=== PATIENT | male | born 1995 | race Caucasian/White ===

== ENCOUNTER 2019-04-01 17:31 | Emergency (ER) | payer BC ==
[~2019-04-01] VITALS: Ht 188 cm; Wt 90.7 kg
[~2019-04-01 17:31] MED LIST: OMEPRAZOLE20 MG
[2019-04-01] MEDS ORDERED: ZYRTEC10 M3 (17:45)
== END 2019-04-01 18:40 | disposition home or self-care (01) ==
LOC: ER 17:31
DX: S81.852A Open bite, left lower leg, initial encounter (principal); W54.0XXA Bitten by dog, initial encounter; Y93.01 Activity, walking, marching and hiking; Y92.480 Sidewalk as the place of occurrence of the external cause; Y99.8 Other external cause status

== ENCOUNTER → 2023-06-27 | Emergency (ER) | payer OTHER ==
[~2023-06-27] VITALS: Ht 182.9 cm; Wt 93.4 kg
[~2023-06-27] MED LIST changes: +BUSPIRONE HCL10 MG PO; +ZYRTEC10 M3
[2023-06-27 10:00] LABS: HEMATOCRIT 33.9 % (39.0-48.0); HEMOGLOBIN 12.2 g/dL (13-16.00); MEAN CELL VOLUME 84.8 fL (80.0-100.00); MEAN CORPUSCULAR HEMOGLOBIN 30.4 pg (27.00-32.0); MEAN CORPUSCULAR HGB CONC 35.8 g/dl (32.0-36.0); PLATELET COUNT 267 K/uL (150-450); RED CELL DISTRIBUTION WIDTH 13.2 % (11.5-14.5)
[2023-06-27 10:37] LABS: URINE APPEARANCE Cloudy; URINE BILIRRUBIN Small (NEGATIVE); URINE BLOOD Small; URINE COLOR Dark Yellow; URINE GLUCOSE Negative (NEGATIVE); URINE LEUKOCYTE Trace; URINE NITRATE Negative
[2023-06-27 10:42] LABS: URINE BACTERIA 122.2 uL (0.0-1933); URINE EPITHELIAL CELLS 88.7 uL (0.0-38.8); URINE RBC 43.8 uL (0.0-20.8); URINE WBC 18.7 uL (0.0-23.2)
[2023-06-27 10:53] LABS: BILIRUBIN TOTAL 1.23 mg/dL (0.3-1.2); C-REACTIVE PROTEIN 36.6 MG/DL (0.00-0.29); CALCIUM 8.3 mg/dL (8.5-10.1); CREATININE SERUM 0.97 mg/dL (0.70-1.30); GFR 92.16; GLOBULINA 4.2 G/DL (2.4-3.5); POTASSIUM 3.24 mEq/L (3.5-5.1); TOTAL PROTEIN 7.2 gm/dL (6.4-8.2)
[2023-06-27 11:16] LABS: URINE PROTEIN 100 (NEGATIVE)
== END | disposition home or self-care (01) ==
LOC: ER 07:27
PROVIDERS: General Practice
DX: B34.9 Viral infection, unspecified (principal); B27.90 Infectious mononucleosis, unspecified without complication; R16.2 Hepatomegaly with splenomegaly, not elsewhere classified; Z20.822 Contact with and (suspected) exposure to COVID-19

== ENCOUNTER 2023-06-29 11:11 | Inpatient (IN) | payer OTHER ==
[~2023-06-29] VITALS: Ht 175.3 cm; Wt 72.6 kg
[2023-06-29 13:39] LABS: HEMATOCRIT 32.7 % (39.0-48.0); HEMOGLOBIN 11.2 g/dL (13-16.00); MEAN CELL VOLUME 86.3 fL (80.0-100.00); MEAN CORPUSCULAR HEMOGLOBIN 29.6 pg (27.00-32.0); MEAN CORPUSCULAR HGB CONC 34.3 g/dl (32.0-36.0); PLATELET COUNT 357 K/uL (150-450); RED BLOOD COUNT 3.79 M/uL (4.00-6.00)
[2023-06-29 14:09] LABS: ALBUMIN 2.4 gm/dL (3.4-5.0); BILIRUBIN TOTAL 1.02 mg/dL (0.3-1.2); BILIRUBIN,CONJUGATED 0.33 mg/dL (0.0-0.2); BILIRUBIN,UNCONJUGATED 0.69 mg/dL (0.0-0.6); CALCIUM 7.9 mg/dL (8.5-10.1); CREATININE SERUM 0.8 mg/dL (0.70-1.30); GFR 115.1; POTASSIUM 3.42 mEq/L (3.5-5.1); TOTAL PROTEIN 6.4 gm/dL (6.4-8.2)
[2023-06-29 14:24] LABS: INR 1.17; PARTIAL THROMBOPLASTIN TIME 28.5 SECONDS (22.0-34.0); PROTHROMBIN TIME 12.1 SECONDS (9.0-11.5)
[2023-06-29 14:30] LABS: URINE APPEARANCE Clear; URINE BILIRRUBIN Negative (NEGATIVE); URINE BLOOD Negative; URINE COLOR Yellow; URINE GLUCOSE Negative (NEGATIVE); URINE LEUKOCYTE Negative; URINE NITRATE Negative; URINE PROTEIN Negative (NEGATIVE)
[2023-06-29 14:31] LABS: URINE EPITHELIAL CELLS 9.2 uL (0.0-38.8); URINE RBC 4.1 uL (0.0-20.8)
[2023-06-29 14:41] LABS: URINE BACTERIA 2.5 uL (0.0-1933)
[2023-06-29 19:31] LABS: C-REACTIVE PROTEIN 22.6 MG/DL (0.00-0.29)
[2023-06-30 08:01] LABS: LDH 563 U/L (87-241); PHOSPHOKINASE CREATININE 39 U/L (39-308)
[2023-06-30 17:15] LABS: LDH 463 U/L (87-241); PHOSPHOKINASE CREATININE 33 U/L (39-308)
[2023-07-01 07:10] LABS: hav igm Negative (Negative); hcv Non Reactive (Non Reactive); hep b c Negative (Negative)
[2023-07-01 08:25] LABS: CALCIUM 7.8 mg/dL (8.5-10.1); CREATININE SERUM 0.58 mg/dL (0.70-1.30); GFR 166.83; MAGNESIUM 2.5 mg/dL (1.8-2.4); PHOSPHOROUS 4.2 mg/dL (2.5-4.9); POTASSIUM 4.67 mEq/L (3.5-5.1)
[2023-07-01 10:02] LABS: HEMATOCRIT 31.2 % (39.0-48.0); HEMOGLOBIN 10.8 g/dL (13-16.00); MEAN CELL VOLUME 86.7 fL (80.0-100.00); MEAN CORPUSCULAR HEMOGLOBIN 30.1 pg (27.00-32.0); MEAN CORPUSCULAR HGB CONC 34.7 g/dl (32.0-36.0); PLATELET COUNT 383 K/uL (150-450); RED CELL DISTRIBUTION WIDTH 13.3 % (11.5-14.5)
[2023-07-01 11:11] LABS: ebv vca igg 73.9 U/mL (0.0-17.9); vca igm ab < 36.0 U/mL (0.0-35.9)
[2023-07-02 06:40] LABS: HEMOGLOBIN 10.8 g/dL (13-16.00); MEAN CELL VOLUME 85.6 fL (80.0-100.00); MEAN CORPUSCULAR HEMOGLOBIN 29.8 pg (27.00-32.0); MEAN CORPUSCULAR HGB CONC 34.8 g/dl (32.0-36.0); PLATELET COUNT 390 K/uL (150-450); RED BLOOD COUNT 3.62 M/uL (4.00-6.00); RED CELL DISTRIBUTION WIDTH 13.5 % (11.5-14.5)
[2023-07-02 07:05] LABS: D DIMER 1.76 MG/L; INR 1.09; PARTIAL THROMBOPLASTIN TIME 24.2 SECONDS (22.0-34.0); PROTHROMBIN TIME 11.4 SECONDS (9.0-11.5)
[2023-07-02 07:43] LABS: ERYTHROCYTE SEDIMENTATION RATE 9 mm/hr
[2023-07-02 07:44] LABS: ALBUMIN 2.1 gm/dL (3.4-5.0); BILIRUBIN TOTAL 0.47 mg/dL (0.3-1.2); CALCIUM 7.7 mg/dL (8.5-10.1); CREATININE SERUM 0.64 mg/dL (0.70-1.30); GFR 148.91; POTASSIUM 4.63 mEq/L (3.5-5.1); TOTAL PROTEIN 5.1 gm/dL (6.4-8.2)
[2023-07-02 08:15] LABS: C-REACTIVE PROTEIN 5.44 MG/DL (0.00-0.29); FERRITIN 3300.4 NG/ML (26-388)
[2023-07-03 11:07] LABS: CHLAMYDIA IGG < 0.91 ratio (0.00-0.90)
[2023-07-03 15:06] LABS: CHLAMYDIA IGM < 0.8 index (0.0-0.7)
[2023-07-04 09:11] LABS: hav igm Negative (Negative); hcv Non Reactive (Non Reactive); hep b c Negative (Negative)
[2023-07-05 17:07] LABS: PARV 0.2 index (0.0-0.8); PARVO B-19 IGG 5.3 index (0.0-0.8)
[2023-07-05 21:06] LABS: anti MPO AB < 0.2 units (0.0-0.9); anti pr3 < 0.2 units (0.0-0.9); c anca <1:20 titer (Neg:<1:20); p anca <1:20 titer (Neg:<1:20)
[2023-07-06 13:12] LABS: a:g ratio 0.8 (0.7-1.7); alpha 1 g 0.5 g/dL (0.0-0.4); alpha 2 0.9 g/dL (0.4-1.0); gamma g 1.2 g/dL (0.4-1.8); globulin t 3.5 g/dL (2.2-3.9); m spike Not Observed g/dL (Not Observed); prot total 6.2 g/dL (6.0-8.5)
== END 2023-07-03 15:11 | disposition home or self-care (01) | DRG 556 ==
LOC: ER 11:11 → MEDI 18:04
PROVIDERS: General Practice; Internal Medicine Infectious Disease; ADMIT Internal Medicine Hematology & Oncology; ATTEND Internal Medicine Hematology & Oncology
DX: M25.59 Pain in other specified joint (principal); M02.39 Reiter's disease, multiple sites; D76.1 Hemophagocytic lymphohistiocytosis; M02.361 Reiter's disease, right knee; M02.362 Reiter's disease, left knee; M06.1 Adult-onset Still's disease; B27.00 Gammaherpesviral mononucleosis without complication; B97.6 Parvovirus as the cause of diseases classified elsewhere; R06.6 Hiccough; R21 Rash and other nonspecific skin eruption